=== PATIENT | male | born 1975 | race Asian ===

== ENCOUNTER 2024-09-07 10:58 | Outpatient (REF) | payer MEDICAID, SELFPAY ==
--- OUTSIDE RECORDS SUMMARY | 2024-09-07 12:58 | XMS_ITS | Clinical Summary ---
Author Organization [employer] Address [address] [facility] 7[address] [place] [address] Care Team Providers Care Pump Press Operator Name Role Phone Crow Sidhu MD Primary Care Provider +1- [phone] Allergies No known active allergies Medications nicotine (Nicoderm, Step 3) 7 MG/24HR patchIndications: Smoking APPLY 1 PATCH TO SKIN EVERY DAY AND WEAR FOR 16 TO 24 HOURS. 42 patch 1 3 Active losartan (Cozaar) 25 MG tablet Take 25 mg by mouth. 3 Active metoprolol succinate XL (Toprol-XL) 100 MG 24 hr tablet Take 150 mg by mouth in the morning. 3 Active rivaroxaban (Xarelto) 20 MG tablet Take 20 mg by mouth. 2 Active varenicline (Chantix) 1 MG tabletIndications :Primary hypertension Take with full glass of water. Days 1 to 3: 0.5 mg once daily. Days 4 to 7: 0.5 mg twice daily. 11 tablet 4 Active traZODone (Desyrel) 100 MG tabletIndications :Primary insomnia TAKE 1 TABLET BY MOUTH EVERYDAY AT BEDTIME 30 tablet 3 5 Active varenicline (Chantix) 1 MG tabletIndications :Smoking Take 1 tablet (1 mg) by mouth 2 times daily. Take with full glass of water. 60 tablet 2 5 11/03/19 25 Active varenicline (Chantix) 0.5 MG tabletIndications :Smoking Take with full glass of water. Days 1 to 3: 0.5 mg once daily. Days 4 to 7: 0.5 mg twice daily. 11 tablet 2 Active Active Problems Problem Noted Date Diagnosed Date Primary insomnia 06/12/2024 Primary hypertension 06/12/2024 Acute on chronic systolic CH F (congestive heart failure), NYHA class 2 03/25/2023 Atrial fibrillation with rapid ventricular respo nse 03/25/2023 LEVI (obstructive sleep apnea) 03/25/2023 Encounters Date Type Department Care Team Description 08/04/2024 9:00 AM EST Telemedicine [facility] [address] [place] [address] Crow Sidhu MD Primary hypertension (Primary Dx); Smoking 08/04/2024 Travel 07/17/[address] [facility] [address] [place] [address] Crow Sidhu MD Primary insomnia 06/16/2024 Travel 06/12/2024 2:00 PM EST Office Visit [facility] [address] [place] [address] Crow Sidhu MD Primary insomnia (Primary Dx); Primary hypertension; LEVI (obstructive sleep apnea); Smoking; Dietary counseling; Exercise counseling; Class 1 obesity due to excess calories with serious comorbidity and body mass index (BMI) of 34.0 to 34.9 in adult; Screening for colon cancer; Encounter for immunization 06/12/2024 Travel from Last 3 Months Immunizations Name Administration Dates Next Due Influenza injectable quadriv alent IIV4 with preservative 05/28/2019 Influenza injectable quadriv alent preservative free 05/15/2022,06/13/2021,07/15/2018 Influenza, seasonal, injecta ble, preservative free 06/12/2024 Pfizer Covid-19 Vaccine 12+ 06/12/2024 Pneumococcal Conjugate PCV 20 06/12/2024 Tdap 07/15/2018 Social History Tobacco Use Types Packs/Day Years Used Date Smoking Tobacco: Every Day Cigarettes Tobacco Cessation:Ready to Q uit: Not Asked; Counseling Given: Not Answered Comments:Has been smoking x 20 years: 10 cig a day. Alcohol Answer Date Recorded Q1: How often do you have a drink containing alc ohol? 2 06/12/2024 Q2: How many drinks containi ng alcohol do you have on a typical day when you are drinking? 0 06/12/2024 Q3: How often do you have six or more drinks on one occasion? 1 06/12/2024 Depression Answer Date Recorded Patient Health Questionnaire-9 Score 7 06/12/2024 Patient Health Questionnaire-9 Score 7 06/12/2024 Last PHQ-9: Questionnaire Data Not on file 1 08/13/2023 Housing Stability Answer Date Recorded What is your housing situation today? I have tam lowry 05/13/[address] you li ve. Do you have problems with any of the following? None of the above 05/13/2023 Food Insecurity Answer Date Recorded Within the past 12 months, y ou worried that your food would run out before you got money to buy more: Never True 05/13/2023 Within the past 12 months,th e food you bought just didn't last and you didn't have enough money to get more: Never True 12/2022 Transportation Answer Date Recorded In the past 12 months, has l ack of transportation kept you from medical appts, meetings, work or from getting things needed for daily living? No 05/13/2023 Utilities Answer Date Recorded In the past 12 months, has t he electric, gas, oil or water company threatened to shut off services in your home? No 05/13/2023 Depression Answer Date Recorded Patient Health Questionnaire-2 Score 2 06/12/2024 Sex and Gender Information Value Date Recorded Sex Assigned at Male 05/07/2022 10:34 AM EDT Legal Sex Male 10:34 AM EDT Gender Identity Male 05/07/2022 10:34 AM EDT Sexual Orientation Straight 05/07/2022 10 :34 AM EDT Last Filed Vital Signs Vital Sign Reading Time Taken Comments Blood Pressure 136/93 06/12/2024 1:48 PM EST Pulse 75 06/12/2024 1:48 PM EST Temperature 36.7 ??C (98.1 ??F) 06/12/2024 1:48 PM ES T Respiratory Rate 20 06/12/2024 1:48 PM EST Oxygen Saturation 97% 06/12/2024 1:48 PM EST Inhaled Oxygen Concentration - - Weight 105 kg (231 lb) 06/12/2024 1:48 PM EST Height 175.3 cm (5' 9 ) 06/12/2024 1:48 PM EST Body Mass Index 34.11 06/12/2024 1:48 PM EST Plan of Treatment Health Maintenance Due Date Last Done Comments CT Colonography 1976 Colonoscopy 1976 FIT 1976 FOBT 1976 Lipid Panel 1976 Sigmoidoscopy 1976 Family Planning (PISQ) 1991 Hepatitis B Vaccines (1 of 3 - 19+ 3-dose series) 1995 SDOH Screening 03/25/2024 03/25/2023 Alcohol/Substance Use Screening 06/12/2025 06/12/2024 Depression Screening 06/12/2025 06/12/2024, 06/12/20 24 Tobacco Screening 08/04/2025 08/04/2024 Zoster Vaccines (1 of 2) 2026 Colorectal Cancer Screening 07/06/2027 FIT DNA/Cologuard 07/06/2027 07/06/2024 DTaP/Tdap/Td Vaccines (2 - Td or Tdap) 07/15/2028 07/15/2018 RSV Patients and Patients Aged 60 years or older (1 - 1-dose 75+ series) 2051 HIV Screening Completed 08/03/2019 Hepatitis C Screening Completed 08/03/2019 COVID-19 Vaccine Completed 06/12/2024, 02/2022, 06/13/2021, Additional history exists Influenza Vaccine Completed 06/12/2024, , 06/13/2021, Additional history exists Pneumococcal Vaccine: Pediatrics (0 to 5 Years) and At-Risk Patients (6 to 49) Years) Completed 06/12/2024 HIB Vaccines Aged Out No longer eligi ble based on patient's age to complete this topic HPV Vaccines Aged Out No longer eligi ble based on patient's age to complete this topic Hepatitis A Vaccines Aged Out No long er eligible based on patient's age to complete this topic IPV Vaccines Aged Out No longer eligi ble based on patient's age to complete this topic Meningococcal Vaccine Aged Out No sang thelma eligible based on patient's age to complete this topic RSV under 20 months Aged Out No longe r eligible based on patient's age to complete this topic Rotavirus Vaccines Aged Out No longer eligible based on patient's age to complete this topic Procedures Procedure Name Priority Date/Time Associated Diagnosis Comments LAB COLOGUARD?? COLON CANCER SCREEN Routine 07/06/2024 12:01 AM EST Screening for colon cancer [facility] HEPATITIS C ANTIBODY RFLX Routine 08/03/2019 1:50 PM EST [facility] HIV AB/AG Routine 08/03/2019 1:50 PM EST from Last 3 Months or Most Recently Relevant to Health Maintenance Results * Cologuard?? colon cancer screening (07/06/2024 12:01 AM EST) Cologuard Result Negative Negative 07/10/19 5:10 PM EST [facility] (CLIA #:[id number]) Comment: NEGATIVE TEST RESULT. A negative Cologuard result indicates a low likelihood that a colorectal cancer (CRC) or advanced adenoma (adenomatous polyps with more advanced pre-malignant features) ??is present. The chance that a person with a negative Cologuard test has a colorectal cancer is less than 1 in 1500 (negative predictive value >99.9%) or has an ??advanced adenoma is less than ??5.3% (negative predictive value 94.7%). These data are based on a prospective cross-sectional study of 10,000 individuals at average risk for colorectal cancer who were screened with both Cologuard and colonoscopy. (Mariza Crooks et al, N Engl J Med 2014;370(14):1286- 1297) The normal value (reference range) for this assay is negative. COLOGUARD RE-SCREENING RECOMMENDATION: Periodic colorectal cancer screening is an important part of preventive healthcare for asymptomatic individuals at average risk for colorectal cancer. ??Following a negative Cologuard result, the [place] [employer] Society and U.S. Multi-Society Task Force screening guidelines recommend a Cologuard re-screening interval of 3 years. References: [place] [employer] Guideline for Colorectal Cancer Screening: https://www.cancer.org/cancer/bdnjy-molmny-ghaevj/yamjgpgoa-hvxqyoiic-cwpcuhx/ac s-rec ommendations.html.; Benita Mae CR, Tracy ForbesK, Colorectal Cancer Screening: Recommendations for Physicians and Patients from the U.S. Multi-Society Task Force on Colorectal Cancer Screening , Am J Gastroenterology 2017; 112:5665-5398. TEST DESCRIPTION: Composite algorithmic analysis of stool DNA-biomarkers with hemoglobin immunoassay. ?? Quantitative values of individual biomarkers are not reportable and are not associated with individual biomarker result reference ranges. Cologuard is intended for colorectal cancer screening of adults of either sex, 45 years or older, who are at average-risk for colorectal cancer (CRC). Cologuard has been approved for use by the U.S. FDA. The performance of Cologuard was established in a cross sectional study of average-risk adults aged 50-84. Cologuard performance in patients ages 45 to 49 years was estimated by sub-group analysis of near-age groups. Colonoscopies performed for a positive result may find as the most clinically significant lesion: colorectal cancer [4.0%], advanced adenoma (including sessile serrated polyps greater than or equal to 1cm diameter) [20%] or non- advanced adenoma [31%]; or no colorectal neoplasia [45%]. These estimates are derived from a prospective cross-sectional screening study of 10,000 individuals at average risk for colorectal cancer who were screened with both Cologuard and colonoscopy. (Mariza Rubalcava al, N Engl J Med 2014;370(14):0291-9514.) Cologuard may produce a false negative or false positive result (no colorectal cancer or precancerous polyp present at colonoscopy follow up). A negative Cologuard test result does not guarantee the absence of CRC or advanced adenoma (pre-cancer). The current Cologuard screening interval is every 3 years. ([place] [employer] Society and U.S. Multi-Society Task Force). Cologuard performance data in a 10,000 patient pivotal study using colonoscopy as the reference method can be accessed at the following location: www.[employer]/results. Additional description of the Cologuard test process, warnings and precautions can be found at www.[employer].com. Stool specimen (specimen) 07/06/2024 12:01 AM EST 07/07/2024 11:53 AM EST Crow Sidhu MD LAB MOLECULAR DIAGNOSTICS O RDERABLES Final Result Performing Organization Address [facility] de Phone Number [facility] (CLIA #:[id number]) [address] [place] [address], * HEPATITIS C ANTIBODY RFLX (08/03/2019 1:50 PM EST) Pathologist [facility] HEPATITIS C ANTIBODY [facility]REACTIVE [facility] Comment: Antibodies to HCV not detected; does not exclude early acute HCV infection. 08/03/2019 1:50 PM EST Crow Sidhu MD HISTORICAL/NON ORDERABLE LA BS Final Result Performing Organization Address [facility] [address] * HIV AB/AG (08/03/2019 1:50 PM EST) [facility] HIV AG/AB NONREACTIVE NR [facility]OUNDAT[facility] ON LAB SYSTEM Comment: HIV-1 p24 Ag and/or HIV-1/HIV-2 Ab not detected. ?? A test result that is nonreactive does not exclude the possibility of exposure to or infection with HIV-1 and/or HIV-2. Nonreactive results in this assay for individuals with prior exposure to HIV-1 and/or HIV-2 may be due to antigen and antibody levels that are below the limit of detection of this assay. ?? The [employer] HIV Ag/Ab Combo assay result and supplemental assay results should be interpreted in conjunction with the patient's clinical presentation, history and other laboratory results. ??If the results are inconsistent with clinical evidence, additional testing is suggested to confirm the result. 08/03/2019 1:50 PM EST Crow Sidhu MD HISTORICAL/NON ORDERABLE LA BS Final Result Performing Organization Address [facility] Phone Number [facility] [address] from Last 3 Months or Most Recently Relevant to Health Maintenance Insurance [place], [place] [facility] C[facility] * Guarantor: Sergo Ahuja Account Type Relation to Patient Date of Phone Billing Address Personal/Family Self [place], [place] * Guarantor: Sergo Ahuja Account Type Relation to Patient Date of Phone Billing Address Personal/Family Self [place], [place] * Guarantor: Sergo Ahuja Account Type Relation to Patient Date of Phone Billing Address Personal/Family Self [place], [place] Care Teams Pump Press Operator Relationship Specialty Start Date End Date Crow Sidhu MD [address] [place] [address] PCP - General Internal Medicine 07/15/18
--- OUTSIDE RECORDS SUMMARY | 2024-09-07 12:58 | XMS_ITS | Encounter Summary ---
Author Organization [employer] Address [address] [place] [address] [address] [place] [address] Care Team Providers Care Welfare Eligibility Interviewer Name Role Phone Crow Sidhu MD Primary Care Provider [phone]- [phone] Reason for Visit * Reason Comments Med Refill Encounter Details Date Type Department Care Team (Late st Contact Info) Description 02/11/2023 Refill [facility] MED & PEDS [address] [place] [address] Crow Sidhu MD [address] [place] [address] Social History Tobacco Use Types Packs/Day Years Used Date Smoking Tobacco: Never Assessed Sex and Gender Information Value Date Recorded Sex Assigned at Male 05/07/2022 10:34 AM EDT Legal Sex Male 10:34 AM EDT Gender Identity Male 05/07/2022 10:34 AM EDT Sexual Orientation Straight 05/07/2022 10 :34 AM EDT documented as of this encounter Plan of Treatment Not on file documented as of this encounter Visit Diagnoses Not on filedocumented in this encounter Care Teams Welfare Eligibility Interviewer Relationship Specialty Start Date End Date Crow Sidhu MD [address] [place] [address] PCP - General Internal Medicine 07/15/18 documented as of this encounter
--- OUTSIDE RECORDS SUMMARY | 2024-09-07 12:58 | XMS_ITS | Encounter Summary ---
Author Organization [employer] Address [address] [place] [address] [address] [place] [address] Care Team Providers Care Sales Project Engineer Name Role Phone Crow Sidhu MD Primary Care Provider +1- [phone] Reason for Visit * Reason Comments Med Refill Encounter Details Date Type Department Care Team ([facility] st Contact Info) Description 02/21/2023 Refill [facility] PEDS [address] [place] [address] Crow Sidhu MD [address] [place] [address] Social History Tobacco Use Types Packs/Day Years [...] on filedocumented in this encounter Care Teams Sales Project Engineer Relationship Specialty Start Date End Date Crow Sidhu MD [address] [place] [address] PCP - General Internal Medicine 07/15/18 documented as of this encounter
--- OUTSIDE RECORDS SUMMARY | 2024-09-07 12:58 | XMS_ITS | Encounter Summary ---
Author Organization [employer] Address [address] [place] [address] [address] [place] [address] Care Team Providers Care Airplane Refueler Name Role Phone Crow Sidhu MD Primary Care Provider +1- [phone] Reason for Visit * Reason Comments Med Refill Encounter Details Date Type Department Care Team (Late st Contact Info) Description 03/12/[address] [facility] MED & PEDS [address] [place] [address] Crow Sidhu MD [address] [place] [address] Social History Tobacco Use Types Packs/Day Years [...] on filedocumented in this encounter Care Teams Airplane Refueler Relationship Specialty Start Date End Date Crow Sidhu MD [address] [place] [address] PCP - General Internal Medicine 07/15/18 documented as of this encounter
--- OUTSIDE RECORDS SUMMARY | 2024-09-07 12:58 | XMS_ITS | Encounter Summary ---
Author Organization [employer] Address [address] [place] [address] [address] [place] [address] Care Team Providers Care Catcher Filter Tip Name Role Phone Crow Sidhu MD Primary Care Provider +1- [phone] Reason for Visit * Reason Comments Med Refill Encounter Details Date Type Department Care Team (Late st Contact Info) Description 03/09/2023 Refill [facility] MED & PEDS [address] [place] [address] Crow Sidhu MD [address] [place] [address] Social History Tobacco Use Types Packs/Day Years [...] on filedocumented in this encounter Care Teams Catcher Filter Tip Relationship Specialty Start Date End Date Crow Sidhu MD [address] [place] [address] PCP - General Internal Medicine 07/15/18 documented as of this encounter
--- OUTSIDE RECORDS SUMMARY | 2024-09-07 12:58 | XMS_ITS | Encounter Summary ---
Author Organization [employer] Address [address] [place] [address] [address] [place] [address] Care Team Providers Care Award Machine Operator Name Role Phone Crow Sidhu MD Primary Care Provider [phone] Reason for Visit * Reason Comments Med Refill Encounter Details Date Type Department Care Team ([facility] st Contact Info) Description 10/02/2022 Refill [facility] MED & PEDS [address] [place] [address] Crow Sidhu MD [address] [place] [address] Primary insomnia Social History Tobacco Use Types Packs/Day Years [...] documented as of this encounter Visit Diagnoses Diagnosis Primary insomnia Persistent disorder of initiating or maintaining sleep documented in this encounter Care Teams Award Machine Operator Relationship Specialty Start Date End Date Crow Sidhu MD [address] [place] [address] PCP - General Internal Medicine 07/15/18 documented as of this encounter
[2024-09-07 14:22] LABS: MANUAL DIFF FLAG NO
[2024-09-07 14:25] LABS: Basophils Absolute Auto 0.1 X10*3/uL (0.0-0.2); Eosinophils Absolute Auto 0.2 X10*3/uL (0.0-0.4); Eosinophils Percent Auto 3.1 % (0-4); Hematocrit 45.8 % (42.0-52.0); Hemoglobin 15.6 g/dl (14.0-18.0); Imm Gran Abs Auto 0.01 X10*3/uL (0.00-0.03); Imm Gran Pct Auto 0.2 % (0.0-0.4); Lymphocytes Percent Auto 32.2 % (20-40); Mean Corpuscular HGB Conc 34.1 g/dl (31.0-36.0); Mean Corpuscular Hemoglobin 30.8 pg (27.0-33.0); Mean Corpuscular Volume 90.3 fL (80.0-98.0); Mean Platelet Volume 10.4 fL (9.4-12.4); Monocytes Absolute Auto 0.5 X10*3/uL (0.1-1.2); Monocytes Percent Auto 7.7 % (2-11); Neutrophils Absolute Auto 3.4 x10*3/uL (2.0-8.3); Neutrophils Percent Auto 55.8 % (45-73); Platelet Count 184 X10*3/uL (160-400); Red Blood Count 5.07 X10*6/uL (4.60-5.80); Red Cell Distribution Width 12.2 % (11.0-16.0); White Blood Count 6.1 X10*3/uL (4.8-10.8)
[2024-09-07 14:46] LABS: Alanine Aminotransferase 46 U/L (0-40); Albumin Level 4.3 g/dL (3.5-5.0); Alkaline Phosphatase 59 U/L (39-117); Anion Gap 12 (12-20); Aspartate Amino Transferase 26 U/L (5-37); Bilirubin Total 0.6 mg/dL (0.0-1.0); Blood Urea Nitrogen 22 mg/dL (9-16); Carbon Dioxide 29 mmol/L (22-29); Chloride 104 mmol/L (96-108); Cholesterol 156 mg/dL (<200); Estimated Glomerular Filt Rate > 60; Glucose Random 119 mg/dL (60-115); HDL Cholesterol 40 mg/dL (>40); LDL Cholesterol Calculated 80 mg/dL (<100); Potassium 4.6 mmol/L (3.3-5.1); Sodium 140 mmol/L (135-145); Total Protein 7.7 g/dL (6.5-8.0); Triglycerides 183 mg/dL (<150)
[2024-09-07 15:03] LABS: TSH reflex Free T4 0.31 uIU/mL (0.32-4.0)
[2024-09-07 16:41] LABS: Free T4 (Free Thyroxine) 1.09 ng/dL (0.71-1.85)
== END 2024-09-07 10:59 | disposition home or self-care (01) ==
LOC: HO.CHCLDS 10:58
PROVIDERS: Visit Provider Internal Medicine
DX: I10 Essential (primary) hypertension (principal)
CPT/HCPCS: 36415; 80053; 80061; 84439; 84443; 85025

== ENCOUNTER 2024-10-14 08:20 | Outpatient (REF) | payer MEDICAID, SELFPAY ==
--- NOTE | ~2024-10-14 | US_ITS ---
CLINICAL HISTORY: Elevated liver enzyme US abdomen complete Comparison: None Findings: The visualized pancreas is normal. The aorta and inferior vena cava are normal caliber. The liver is normal in size and mildly increased echotexture. There is no intrahepatic bile duct dilatation. The common duct is 6 mm in diameter. The gallbladder is normal. There is no sonographic [place]chola sign. The main portal vein is antegrade. The right kidney is 11.2 cm in length. The left kidney is 11.9 cm in length. The spleen is normal. No ascites. IMPRESSION: Mild hepatic steatosis. No acute process. This document has been electronically signed by: Huber Daigle MD on 10/14/2024 11:53:57
--- OUTSIDE RECORDS SUMMARY | 2024-10-14 08:32 | XMS_ITS | Encounter Summary ---
Author Organization [employer] Address [address] [place] [address] [address] [place] [address] Care Team Providers Care Deputy Director Name Role Phone Crow Sidhu MD Primary Care Provider +1- [phone] Reason for Visit * Reason Comments Med Refill Encounter Details Date Type Department Care Team (Late st Contact Info) Description 02/11/2023 Refill [facility] MED & PEDS [address] [place] [address] Crow Sidhu MD [address] [place] [address] Social History Tobacco Use Types Packs/Day Years [...] on filedocumented in this encounter Care Teams Deputy Director Relationship Specialty Start Date End Date Crow Sidhu MD [address] [place] [address] PCP - General Internal Medicine 07/15/18 documented as of this encounter
--- OUTSIDE RECORDS SUMMARY | 2024-10-14 08:32 | XMS_ITS | Clinical Summary ---
Author Organization [employer] Address [address] [facility] 7t [place] [address] Care Team Providers Care Cota Name Role Phone Crow Sidhu MD Primary Care Provider [phone] Allergies No known active allergies Medications nicotine [...] Encounters Date Type Department Care Team Description 09/18/2024 Population Health Risk Score [facility] (C3) Department [address] [phone] Provider, Population Health Generic 09/07/2024 Orders Only [facility] MEDICINE [address] [place], [place] [phone] Crow Sidhu MD Atrial fibrillation with rapid ventricular response (CMS/HCC) (Primary Dx); Elevated liver enzymes 09/07/2024 Orders Only [facility] CH[facility] MED & PEDS [address] [place] [address] Crow Siduh MD 08/04/2024 9:00 AM EST Telemedicine [facility] MED & PEDS [address] [place] [address] Crow Sidhu MD Primary hypertension (Primary Dx); Smoking 08/04/2024 Travel 07/17/2024 Refill [facility] MED & PEDS [address] [place] [address] Crow Sidhu MD Primary insomnia from Last 3 Months Immunizations Name Administration [...] 1976 Colonoscopy 1976 FIT 1976 FOBT 1976 Sigmoidoscopy 1976 Family Planning (PISQ) 1991 Hepatitis B Vaccines (1 of 3 - 19+ 3-dose series) 1995 SDOH Screening 03/25/2024 03/25/2023 Alcohol/Substance Use Screening 06/12/2025 06/12/2024 Depression Screening 06/12/2025 06/12/2024, 06/12/20 24 Tobacco Screening 08/04/2025 08/04/2024 Zoster Vaccines (1 of 2) 2026 Colorectal Cancer Screening 07/06/2027 FIT DNA/Cologuard 07/06/2027 07/06/2024 DTaP/Tdap/Td Vaccines (2 - Td or Tdap) 07/15/2028 07/15/2018 Lipid Panel 09/07/2029 09/07/2024 RSV Patients and Patients Aged 60 years [...] Procedure Name Priority Date/Time Associated Diagnosis Comments T4, FREE Routine 09/07/2024 11:00 AM EST TSH W/REFLEX TO FT4 Routine 09/07/2024 1 1:00 AM EST Primary hypertension LIPID PANEL, STANDARD Routine 09/07/2024 11:00 AM EST Primary hypertension COMPREHENSIVE METABOLIC PANEL Routine 09/07/2024 11:00 AM EST Primary hypertension CBC WITH AUTO DIFFERENTIAL Routine 09/07/2024 11:00 AM EST Primary hypertension LAB COLOGUARD?? COLON CANCER SCREEN Routine 07/06/2024 12:01 AM EST Screening for colon cancer ZZZ HISTORICAL HEPATITIS C ANTIBODY RFLX Routine 08/03/2019 1:50 PM EST ZZZ HISTORICAL HIV AB/AG Routine 08/03/2019 1:50 PM EST from Last 3 Months or Most Recently Relevant to Health Maintenance Results * (ABNORMAL) TSH W/Reflex to FT4 (09/07/2024 11:00 AM EST) TSH reflex Free T4 0.31(L) 0.32 - 4.0 uIU/mL [facility] Blood Venous blood specimen / Unknown 09/07/2024 11:00 AM EST 09/07/2024 2:17 PM EST us Crow Sidhu MD LAB BLOOD ORDERABLES Final Result [facility] [address] [place] [address] [phone] * CBC auto differential (09/07/2024 11:00 AM EST) White Blood Count 6.1 4.8 - 10.8 X10*3/uL [facility] Red Blood Count 5.07 4.60 - 5.80 X10*6/uL [facility] Hemoglobin 15.6 14.0 - 18.0 g/dl [facility] Hematocrit 45.8 42.0 - 52.0 % [facility] Mean Corpuscular Volume 90.3 80.0 - 98.0 fL [facility] Mean Corpuscular Hemoglobin 30.8 27.0 - 33.0 pg [facility] Mean Corpuscular HGB Conc 34.1 31.0 - 36.0 g/dl [facility] Red Cell Distribution Width 12.2 11.0 - 16.0 % [facility] Platelet Count 184 160 - 400 X10*3/uL [facility] Mean Platelet Volume 10.4 9.4 - 12.4 fL [facility] Neutrophils Percent Auto 55.8 45 - 73 % [facility] Imm Gran Pct Auto 0.2 0.0 - 0.4 % [facility] Lymphocytes Percent Auto 32.2 20 - 40 % [facility] Monocytes Percent Auto 7.7 2 - 11 % [facility] Eosinophils Percent Auto 3.1 0 - 4 % [facility] Basophils Percent Auto 1.0 0 - 2 % [facility] NRBC Pct Auto 0.0 0.0 - 0.2 /100WBC [facility] Neutrophils Absolute Auto 3.4 2.0 - 8.3 x10*3/uL [facility] Imm Gran Abs Auto 0.01 0.00 - 0.03 X10*3/uL [facility] Lymphocytes Absolute Auto 2.0 1.2 - 4.9 X10*3/uL [facility] Monocytes Absolute Auto 0.5 0.1 - 1.2 X10*3/uL [facility] Eosinophils Absolute Auto 0.2 0.0 - 0.4 X10*3/uL [facility] Basophils Absolute Auto 0.1 0.0 - 0.2 X10*3/uL [facility] NRBC Abs Auto 0.000 0.0 - 0.012 X10*3/uL [facility] Blood Venous blood specimen / Unknown 09/07/2024 11:00 AM EST 09/07/2024 2:17 PM EST us Crow Sidhu MD LAB BLOOD ORDERABLES Final Result Performing Organization Address [facility]/ZIP Co de Phone Number [facility] [address] [place] [phone] * T4, Free (09/07/2024 11:00 AM EST) Free T4 (Free Thyroxine) 1.09 0.71 - 1.85 ng/dL [facility] 09/07/2024 11:0 0 AM EST 09/07/2024 2:17 PM EST us Crow Sidhu MD LAB BLOOD ORDERABLES Final Result Performing Organization Address [facility] de Phone Number [facility] [address] [place] [phone] * (ABNORMAL) Lipid Panel, Standard (09/07/2024 11:00 AM EST) Triglycerides 183(H) <150 mg/dL [facility] Comment:Desirable Triglyceri de: less than 150 mg/dLBorderline High Triglyceride 150-199 mg/dLHigh Triglyceride: 200-499 mg/dLVery High Triglyceride: greater than or equal to 5OO mg/dL Cholesterol 156 <200 mg/dL [facility] Comment:Desirable Cholestero l: less than 200 mg/dLBorderline High Cholesterol: 200-239 mg/dLHigh Cholesterol: greater than 239 mg/dL LDL Cholesterol Calculated 80 <100 mg/dL [facility] Comment:Desirable LDL: less than 100 mg/dLNear Optimal/Above Optimal LDL: 110- 129 mg/dLBorderline High LDL: 130-159 mg/dLHigh LDL: 160-189 mg/dLVery High LDL: greater than or equal to 190 mg/dL HDL Cholesterol 40(L) >40 mg/dL [facility] Comment:Desirable HDL: great er than 40 mg/dL Note: This HDL assay may give artificially low results in patients with liver disease. Blood Venous blood specimen / Unknown 09/07/2024 11:00 AM EST 09/07/2024 2:17 PM EST us Crow Sidhu MD LAB BLOOD ORDERABLES Final Result [facility] [address] [place], [place] [phone] * (ABNORMAL) Comprehensive Metabolic Panel (09/07/2024 11:00 AM EST) Sodium 140 135 - 145 mmol/L [facility] Potassium 4.6 3.3 - 5.1 mmol/L [facility] Chloride 104 96 - 108 mmol/L [facility] Carbon Dioxide 29 22 - 29 mmol/L [facility] Anion Gap 12 12 - 20 [facility] Urea Nitrogen (BUN) 22(H) 9 - 16 mg/dL [facility] Creatinine, Serum 0.90 0.5 - 1.4 mg/dL [facility] Estimated Glomerular Filt Rate >60 [facility] Comment:Chronic Kidney Disea se: Estimated GFR < 60 mL/min/1.55f2Cogztq Kidney Disease: Estimated GFR < 15 mL/min/1.73m2 Glucose 119(H) 60 - 115 mg/dL [facility] Calcium 9.0 8.4 - 10.2 mg/dL [facility] Bilirubin, Total 0.6 0.0 - 1.0 mg/dL [facility] Aspartate Amino Transferase 26 5 - 37 U/L [facility] Alanine Aminotransferase 46(H) 0 - 40 U/L [facility] Total Protein 7.7 6.5 - 8.0 g/dL [facility] Albumin Level 4.3 3.5 - 5.0 g/dL [facility] Alkaline Phosphatase 59 39 - 117 U/L [facility] Blood Venous blood specimen / Unknown 09/07/2024 11:00 AM EST 09/07/2024 2:17 PM EST us Crow Sidhu MD LAB BLOOD ORDERABLES Final Result [facility] [address] [place] [address] [phone] * Cologuard?? colon cancer screening (07/06/2024 12:01 AM EST) Cologuard Result Negative Negative 07/10/19 5:10 PM EST [facility] (CLIA #:[id number]) Comment: NEGATIVE TEST RESULT. A negative Cologuard [...] cancer. ??Following a negative Cologuard result, the English Cancer Society and U.S. Multi-Society Task Force screening guidelines recommend a Cologuard re-screening interval of 3 years. References: English Cancer Society Guideline for Colorectal Cancer Screening: https://www.cancer.org/cancer/fpuaj-qljtdw-gpysyb/jddykmshc-pcvhvrprd-udortmx/ac s-rec ommendations.html.; Selwyn DK, Benita DANIEL, Tracy BABIN, Colorectal Cancer Screening: Recommendations for Physicians and Patients from the U.S. Multi-Society Task Force on Colorectal Cancer Screening , Am J Gastroenterology 2017; 112:1533-8011. TEST DESCRIPTION: Composite algorithmic analysis of stool [...] screened with both Cologuard and colonoscopy. (Mariza Bernal. et al, N Engl J Med 2014;370(14):8708-2773.) Cologuard may produce a false negative or false positive result (no colorectal cancer or precancerous polyp present at colonoscopy follow up). A negative Cologuard test result does not guarantee the absence of CRC or advanced adenoma (pre-cancer). The current Cologuard screening interval is every 3 years. (English Cancer Society and U.S. Multi-Society Task Force). Cologuard performance data in a 10,000 patient pivotal study using colonoscopy as the reference method can be accessed at the following location: www.[employer]/results. Additional description of the Cologuard test process, warnings and precautions can be found at www.Sincerelyoguard.com. Stool specimen (specimen) 07/06/2024 12:01 AM EST 07/07/2024 11:53 AM EST us Thevenin Beauzile MD LAB MOLECULAR DIAGNOSTICS O RDERABLES Final Result Performing Organization Address [facility] Co de Phone Number [facility] (CLIA #:[id number]) Lazaro [place] [address], * HEPATITIS C ANTIBODY RFLX (08/03/2019 1:50 PM EST) HEPATITIS C ANTIBODY NONREACTIVE [facility] Comment: Antibodies to HCV not detected; does not exclude early acute HCV infection. 08/03/2019 1:50 PM EST Crow Sidhu MD HISTORICAL/NON ORDERABLE LA BS Final Result Performing Organization Address [facility] [address] * HIV AB/AG (08/03/2019 1:50 PM EST) Pathologist [facility] HIV AG/AB NONREACTIVE NR [facility] ON LAB [...] detection of this assay. ?? The [employer] Hand HIV Ag/Ab Combo assay result and supplemental assay results should be interpreted in conjunction with the patient's clinical presentation, history and other laboratory results. ??If the results are inconsistent with clinical evidence, additional testing is suggested to confirm the result. 08/03/2019 1:50 PM EST us Crow Sidhu MD HISTORICAL/NON ORDERABLE LA BS Final Result Performing Organization Address [facility] Co de Phone Number [facility] [address] from Last 3 Months or Most Recently Relevant to Health Maintenance Insurance [place] [facility] C3 * Guarantor: Sergo Ahuja Account Type Relation to Patient Date of Phone Billing Address Personal/Family Self [place], [place] * Guarantor: Sergo Ahuja Account Type Relation to Patient Date of Phone Billing Address Personal/Family Self [place], [place] * Guarantor: Sergo Ahuja Account Type Relation to Patient Date of Phone Billing Address Personal/Family Self [place] Care Teams Cota Relationship Specialty Start Date End Date Crow Sidhu MD [address] [place] [phone] PCP - General Internal Medicine 07/15/18
--- OUTSIDE RECORDS SUMMARY | 2024-10-14 08:32 | XMS_ITS | Encounter Summary ---
Author Organization [employer] Address [address] [place] [address] [address] [place] [address] Care Team Providers Care Senior Informatica Etl Developer Name Role Phone Crow Sidhu MD Primary Care Provider [phone] Reason for Visit * Reason Comments Med Refill Encounter Details Date Type Department Care Team (Late st Contact Info) Description 03/12/2023 Refill [facility] CHC MED & PEDS [address] [place] [address] Crow Sidhu MD [address] [place] [address] Social History Tobacco Use Types Packs/Day Years [...] on filedocumented in this encounter Care Teams Senior Informatica Etl Developer Relationship Specialty Start Date End Date Crow Sidhu MD [address] [place] [address] PCP - General Internal Medicine 07/15/18 documented as of this encounter
--- OUTSIDE RECORDS SUMMARY | 2024-10-14 08:32 | XMS_ITS | Encounter Summary ---
Author Organization [employer] Address [address] [place] [address] 7 [place] [address] Care Team Providers Care Exhaust And Muffler Fitter Name Role Phone Crow Sidhu MD Primary Care Provider [phone] Reason for Referral * Imaging (Routine) - Authorized Specialty Diagnoses / Procedures Referred By Contac t Referred To Contact Radiology Diagnoses Elevated liver enzymes Procedures US Abdomen Complete Crow Sidhu MD [address] [place] [address] Phone: tel: fax: [address] Phone: tel: fax: Referral ID Status Reason Start Date Expiration Date V isits Requested Visits Authorized [id number] Authorized 09/07/2024 09/07/2025 1 1 Encounter Details Date Type Department Care Team (Late st Contact Info) Description 09/07/2024 Orders Only [facility] MEDICINE [address] [place] [address] Crow Sidhu MD [address] [place], [place] [phone] Atrial fibrillation with rapid ventricular response (CMS/HCC) (Primary Dx); Elevated liver enzymes Social History Tobacco Use Types Packs/Day Years Used Date Smoking Tobacco: Every Day Cigarettes Comments:Has been smoking x 20 years: 10 [...] as of this encounter Plan of Treatment Scheduled Orders Name Type Priority Associated Diagnoses Orde r Schedule Hepatitis A,B,C Profile Lab Routine Elevated liver enzymes Expected: 09/07/2024, Expires: 09/07/2025 US Abdomen Complete Imaging Routine Elevated liver enzymes Expected: 09/07/2024, Expires: 09/07/2025 documented as of this encounter Visit Diagnoses Diagnosis Atrial fibrillation with rapid ventricular response (CMS/HCC)- Primary Elevated liver enzymes Other nonspecific abnormal serum enzyme levels documented in this encounter Additional Health Concerns Assessment Noted Time PHQ-9 Depression Total Score: 7 06/12/20 24 3:04 PM EST documented as of this encounter Care Teams Exhaust And Muffler Fitter Relationship Specialty Start Date End Date Crow Sidhu MD [address] [place] [phone] PCP - General Internal Medicine 07/15/18 documented as of this encounter
--- OUTSIDE RECORDS SUMMARY | 2024-10-14 08:32 | XMS_ITS | Encounter Summary ---
Author Organization [employer] Address [address] [place] [address] 7 [place] [address] Care Team Providers Care Gasket Maker Name Role Phone Crow Sidhu MD Primary Care Provider [phone] Reason for Visit * Reason Comments Med Refill Encounter Details Date Type Department Care Team ([facility] st Contact Info) Description 10/02/2022 Refill [facility] CHC MED & PEDS [address] [place] [address] Crow Sidhu MD [address] [place] [address] Primary insomnia Social History Tobacco Use Types [...] sleep documented in this encounter Care Teams Gasket Maker Relationship Specialty Start Date End Date Crow Sidhu MD [address] [place] [address] PCP - General Internal Medicine 07/15/18 documented as of this encounter
--- OUTSIDE RECORDS SUMMARY | 2024-10-14 08:32 | XMS_ITS | Encounter Summary ---
Author Organization [employer] Address [address] [place] [address] [address] [place] [address] Care Team Providers Care Prosthetics Technician Name Role Phone Crwo Sidhu MD Primary Care Provider [phone] Reason for Visit * Reason Comments Med Refill Encounter Details Date Type Department Care Team (Late st Contact Info) Description 03/09/2023 Refill [facility] CHC MED & PEDS [address] [place] [address] Crow Sidhu MD [address] [place] [address] Social History Tobacco Use Types Packs/Day Years [...] on filedocumented in this encounter Care Teams Prosthetics Technician Relationship Specialty Start Date End Date Crow Sidhu MD [address] [place] [address] PCP - General Internal Medicine 07/15/18 documented as of this encounter
--- OUTSIDE RECORDS SUMMARY | 2024-10-14 08:32 | XMS_ITS | Encounter Summary ---
Author Organization [employer] Address [address] [place] [address] [address] [place] [address] Care Team Providers Care Entry Level Project Engineer Name Role Phone Crow Sidhu MD Primary Care Provider [phone] Reason for Visit * Reason Comments Med Refill Encounter Details Date Type Department Care Team ([facility] st Contact Info) Description 02/21/2023 Refill [facility] CHC MED & PEDS [address] [place] [address] Crow Sidhu MD [address] [place] [address] Social History Tobacco Use Types Packs/Day Years [...] on filedocumented in this encounter Care Teams Entry Level Project Engineer Relationship Specialty Start Date End Date Crow Sidhu MD [address] [place] [address] PCP - General Internal Medicine 07/15/18 documented as of this encounter
== END 2024-10-14 08:21 | disposition home or self-care (01) ==
LOC: HO.HMGCX 08:20
PROVIDERS: PCP Internal Medicine; Visit Provider Internal Medicine
DX: R74.8 Abnormal levels of other serum enzymes (principal)
CPT/HCPCS: 76700

== ENCOUNTER → 2024-10-14 08:22 | Outpatient (BNV) | payer MEDICAID, SELFPAY | PROVIDERS: PCP Internal Medicine; Visit Provider Radiology Vascular & Interventional Radiology | DX: R74.01 Elevation of levels of liver transaminase levels (principal) | CPT/HCPCS: 76700 ==